=== PATIENT | female | born 1990 | race Caucasian/White ===

== ENCOUNTER → 2017-01-13 | Outpatient (CLI) | payer BC ==
[2017-01-13 17:18] VITALS: BP 128/82
== END ==
LOC: EDUNIT# 10:06 → MHUC 10:06
PROVIDERS: ATTEND Physician Assistant
DX: J00 Acute nasopharyngitis [common cold] (principal)
CPT/HCPCS: 87880; 99213

== ENCOUNTER → 2017-01-17 | Outpatient (CLI) | payer BC ==
[2017-01-17 15:17] VITALS: BP 142/85
== END ==
LOC: EDUNIT# 14:29 → MHUC 14:29
PROVIDERS: ATTEND Physician Assistant
DX: H66.001 Acute suppurative otitis media without spontaneous rupture of ear drum, right ear (principal); R05 Cough
CPT/HCPCS: 99213